=== PATIENT | male | born 1965 | race Two or more races ===

== ENCOUNTER 2019-08-20 15:00 | Emergency (ER) | payer OTHER, MEDICAID ==
[2019-08-20] MEDS ORDERED: NOREPINEPHRINE 8 MG/250ML KIT 250 ML IV ONE (15:08)
[2019-08-20] MEDS ORDERED: methylPREDNISolone SOD SUCC 125 MG/2 ML VL IV ONE (15:45)
[2019-08-20 16:14] LABS: Basophils # (auto) 0 10 ^3/uL (0-0.2); Basophils % (auto) 0.3 % (0.0-2.0); Eosinophils # (auto) 0 10 ^3/uL (0-0.8); Eosinophils % (auto) 0.1 % (0.0-7.0); Hemoglobin 13.4 g/dL (13.5-17.5); Lymphocytes # (auto) 1.6 10 ^3/uL (0.4-5.4); Monocytes # (auto) 0.4 10 ^3/uL (0-1.3); Neutrophils # (auto) 7.7 10 ^3/uL (1.6-8.6); Neutrophils % (auto) 79.3 % (37.0-80.0); Red Cell Distribution Width 14.4 % (11.8-14.3); White Blood Cell 9.7 10^3/uL (4.4-10.8)
[2019-08-20 16:17] LABS: Hematocrit 40.7 % (41.0-53.0); Lymphocytes % (auto) 16.2 % (10.0-50.0); Mean Corpuscular Hemoglobin 34.6 pg (28.0-32.0); Monocytes % (auto) 4.1 % (0.0-12.0); Nucleated Red Blood Cells % 2.1 %; Platelet Count (auto) 63 10^3/uL (140-450); Red Blood Cells 3.87 10^6/uL (4.5-5.90)
[2019-08-20 16:27] LABS: Albumin 2.6 g/dL (3.4-5.0); BUN/Creatinine Ratio 15.5; Calcium 9.2 mg/dL (8.5-10.1); Magnesium 3.2 mg/dL (1.6-2.6); Potassium 5.3 mmol/L (3.5-5.1)
[2019-08-20 16:32] LABS: Lactic Acid w/Reflex 8.5 mmol/L (0.4-2.0)
[2019-08-20] MEDS ORDERED: SODIUM BICARBONATE 8.4 % INJ 50ML VIAL IV ONE (17:00)
[2019-08-20] MEDS ORDERED: FUROSEMIDE 40 MG/4 ML VIAL IV ONE (17:00)
[2019-08-20 17:09] LABS: Bilirubin, Total 0.7 mg/dL (0.2-1.0); Total Protein 5.7 g/dL (6.4-8.2)
[2019-08-20 17:32] LABS: CRP High Sensitivity 14.5 mg/dL (< 0.3)
[2019-08-20 17:45] VITALS: BP 84/26
== END 2019-08-20 17:52 | disposition expired ==
LOC: EDBD 15:00 → ER 15:00
DX: I46.9 Cardiac arrest, cause unspecified (principal); U07.1 COVID-19; R41.82 Altered mental status, unspecified; N17.9 Acute kidney failure, unspecified
CPT/HCPCS: 31500; 36415; 36556; 36600; 71045; 80053; 82728; 82805; 83605; 83615; 83735; 83880; 84484; 85025; 85379; 86141; 87040; 87070; 87205; 87804; 87880; 92950; 93005; 96374; 99291; C9803; J1940; J2930; U0003; 94002